=== PATIENT | female | born 1990 ===

== ENCOUNTER 2019-04-22 18:03 | Inpatient (IN) ==
[2019-04-22 18:47] LABS: Basophils % 0.5 % (0.0-0.8); Eosinophils # 0.1 10*3/uL (0.0-0.87); Eosinophils % 1.1 % (0.00-10.9); Hematocrit 37.4 VOL% (35.7-47.0); Hemoglobin 12.5 GM/DL (12.0-16.0); Immature Granulocytes % 0.5 %; Immature Granulocytes Absolute 0.04 #; Lymphocytes # 0.8 10*3/uL (1.4-4.0); Lymphocytes % 9.4 % (21.3-54.2); Mean Corpuscular HGB Conc 33.4 GM/DL (32-36); Mean Corpuscular Volume 93.5 FL (87-102); Mean Platelet Volume 9.9 FL (9.6-12.0); Monocytes % 7.1 % (1.7-12.7); Neutrophils % 81.4 % (38.7-73.9); Platelet Count 286 T/CUMM (130-400); White Blood Count 8.8 T/CUMM (4-12)
[2019-04-22 19:14] LABS: Albumin 2.7 G/DL (3.4-5.0); Bilirubin,Total 0.5 MG/DL (0.2-1.0); Calcium 8.3 MG/DL (8.5-10.1); Osmolality,Calculated 266.2 MOS/KG (273-304); Total Protein 7.2 G/DL (6.4-8.3)
[2019-04-22] MEDS ORDERED: ACETAMINOPHEN 325 MG TABLET PO PRN (20:53)
[2019-04-22] MEDS ORDERED: ONDANSETRON 4 MG/2 ML VIAL IV PRN (20:53)
[2019-04-22] MEDS: HYDROmorphone 2 MG/1 ML VIAL IV PRN (23:37)
[2019-04-23] MEDS: PIPERACILLIN/TAZOBACTAM 3,375 MG in SODIUM CHLORIDE 0.9% 100 ML IV SCH ×4 (00:48→20:30)
[2019-04-23] MEDS: SODIUM CHLORIDE 0.9% 1,000 ML IV SCH ×3 (00:50→14:24)
[2019-04-23] MEDS: HYDROmorphone 2 MG/1 ML VIAL IV PRN (06:20)
[2019-04-23 06:27] LABS: Basophils % 0.4 % (0.0-0.8); Eosinophils # 0.2 10*3/uL (0.0-0.87); Eosinophils % 2.2 % (0.00-10.9); Hematocrit 32.1 VOL% (35.7-47.0); Hemoglobin 10.5 GM/DL (12.0-16.0); Immature Granulocytes % 0.7 %; Immature Granulocytes Absolute 0.05 #; Lymphocytes # 0.9 10*3/uL (1.4-4.0); Lymphocytes % 12.7 % (21.3-54.2); Mean Corpuscular HGB Conc 32.7 GM/DL (32-36); Mean Corpuscular Volume 95.8 FL (87-102); Mean Platelet Volume 9.9 FL (9.6-12.0); Monocytes % 13.6 % (1.7-12.7); Neutrophils % 70.4 % (38.7-73.9); Platelet Count 244 T/CUMM (130-400); Red Blood Count 3.35 MC/CUMM (3.8-5.5); Red Cell Distribution Width 13.2 % (9.3-17.3); White Blood Count 6.8 T/CUMM (4-12)
[2019-04-23 06:42] LABS: Albumin 2.2 G/DL (3.4-5.0); Bilirubin,Total 0.4 MG/DL (0.2-1.0); Calcium 7.8 MG/DL (8.5-10.1)
[2019-04-23] MEDS ORDERED: LIDOCAINE 1%/EPI INJ 20 ML VIAL ONE (09:37)
[2019-04-23] MEDS ORDERED: BUPIVACAINE MPF 0.25% 30 ML VIAL ONE (09:37)
[2019-04-23] MEDS ORDERED: SEVOFLURANE 1 UNIT/15 MINUTE INH ONE (10:38)
[2019-04-23] MEDS ORDERED: MIDAZOLAM 2 MG/2 ML VIAL ONE (10:38)
[2019-04-23] MEDS ORDERED: propofoL 200 MG/20 ML VIAL IV ONE (10:38)
[2019-04-23] MEDS ORDERED: LIDOCAINE 2% 5 ML VIAL ONE (10:38)
[2019-04-23] MEDS ORDERED: ONDANSETRON 4 MG/2 ML VIAL ONE (10:39)
[2019-04-23] MEDS ORDERED: fentaNYL 100 MCG/2 ML VIAL ONE (10:39)
[2019-04-23] MEDS ORDERED: DEXAMETHASONE 4 MG/1 ML VIAL ONE (10:39)
[2019-04-23] MEDS: KETOROLAC 10 MG TABLET PO SCH ×3 (13:03→20:31)
[2019-04-23] MEDS: CYCLOBENZAPRINE 10 MG TABLET PO SCH ×3 (13:03→20:31)
[2019-04-23] MEDS: ENOXAPARIN 40 MG/0.4 ML SYRINGE SUBCUT SCH (16:09)
[2019-04-24] MEDS: SODIUM CHLORIDE 0.9% 1,000 ML IV SCH ×2 (03:41→17:21)
[2019-04-24] MEDS: PIPERACILLIN/TAZOBACTAM 3,375 MG in SODIUM CHLORIDE 0.9% 100 ML IV SCH ×3 (06:28→20:25)
[2019-04-24] MEDS: CYCLOBENZAPRINE 10 MG TABLET PO SCH ×3 (09:44→20:25)
[2019-04-24] MEDS: KETOROLAC 10 MG TABLET PO SCH ×3 (09:44→20:25)
[2019-04-24] MEDS: HYDROmorphone 2 MG/1 ML VIAL IV PRN ×2 (09:59→22:45)
[2019-04-24] MEDS: ENOXAPARIN 40 MG/0.4 ML SYRINGE SUBCUT SCH (14:00)
[2019-04-25] MEDS: PIPERACILLIN/TAZOBACTAM 3,375 MG in SODIUM CHLORIDE 0.9% 100 ML IV SCH ×3 (04:30→20:26)
[2019-04-25 06:06] LABS: Basophils % 0.6 % (0.0-0.8); Eosinophils # 0.2 10*3/uL (0.0-0.87); Hematocrit 31.1 VOL% (35.7-47.0); Hemoglobin 9.8 GM/DL (12.0-16.0); Immature Granulocytes Absolute 0.14 #; Lymphocytes # 2.5 10*3/uL (1.4-4.0); Lymphocytes % 35.2 % (21.3-54.2); Mean Corpuscular HGB Conc 31.5 GM/DL (32-36); Mean Corpuscular Volume 98.7 FL (87-102); Mean Platelet Volume 9.9 FL (9.6-12.0); Monocytes % 8.6 % (1.7-12.7); Neutrophils % 50.6 % (38.7-73.9); Platelet Count 250 T/CUMM (130-400); Red Blood Count 3.15 MC/CUMM (3.8-5.5); Red Cell Distribution Width 13.3 % (9.3-17.3); White Blood Count 7.1 T/CUMM (4-12)
[2019-04-25 06:38] LABS: Band Neutrophils 1 % (0-10); Lymphocytes 29 % (20-55); Segmented Neutrophils 61 % (50-85)
[2019-04-25 06:39] LABS: Platelet Estimate Normal; Total Cells Counted 100
[2019-04-25] MEDS: SODIUM CHLORIDE 0.9% 1,000 ML IV SCH ×2 (08:38→18:43)
[2019-04-25] MEDS: CYCLOBENZAPRINE 10 MG TABLET PO SCH ×3 (09:07→20:27)
[2019-04-25] MEDS: KETOROLAC 10 MG TABLET PO SCH ×3 (09:07→20:27)
[2019-04-25] MEDS: HYDROmorphone 2 MG/1 ML VIAL IV PRN ×2 (13:42→23:01)
[2019-04-25] MEDS: ENOXAPARIN 40 MG/0.4 ML SYRINGE SUBCUT SCH (16:14)
[2019-04-26] MEDS: PIPERACILLIN/TAZOBACTAM 3,375 MG in SODIUM CHLORIDE 0.9% 100 ML IV SCH ×3 (05:01→21:07)
[2019-04-26] MEDS: KETOROLAC 10 MG TABLET PO SCH ×4 (07:22→21:06)
[2019-04-26] MEDS: CYCLOBENZAPRINE 10 MG TABLET PO SCH ×4 (07:22→21:06)
[2019-04-26] MEDS: HYDROmorphone 2 MG/1 ML VIAL IV PRN ×2 (07:22→22:29)
[2019-04-26] MEDS: ENOXAPARIN 40 MG/0.4 ML SYRINGE SUBCUT SCH (14:45)
[2019-04-26] MEDS: SODIUM CHLORIDE 0.9% 1,000 ML IV SCH (21:18)
[2019-04-27] MEDS: PIPERACILLIN/TAZOBACTAM 3,375 MG in SODIUM CHLORIDE 0.9% 100 ML IV SCH ×2 (05:20→14:16)
[2019-04-27] MEDS: SODIUM CHLORIDE 0.9% 1,000 ML IV SCH ×3 (09:13→22:41)
[2019-04-27] MEDS: CYCLOBENZAPRINE 10 MG TABLET PO SCH ×3 (09:14→20:45)
[2019-04-27] MEDS: KETOROLAC 10 MG TABLET PO SCH ×3 (09:14→20:44)
[2019-04-27] MEDS: ENOXAPARIN 40 MG/0.4 ML SYRINGE SUBCUT SCH (14:16)
[2019-04-27] MEDS: CIPROFLOXACIN 500 MG TABLET PO SCH (20:45)
[2019-04-28] MEDS: HYDROmorphone 2 MG/1 ML VIAL IV PRN (07:21)
[2019-04-28] MEDS: CYCLOBENZAPRINE 10 MG TABLET PO SCH (09:40)
[2019-04-28] MEDS: CIPROFLOXACIN 500 MG TABLET PO SCH (09:40)
[2019-04-28] MEDS ORDERED: INFLUENZA VIRUS VACCINE 0.5 ML SYRINGE IM ONE (11:26)
[2019-04-28 12:05] VITALS: BP 136/79
[2019-04-28] MEDS: SODIUM CHLORIDE 0.9% 1,000 ML IV SCH (12:52)
== END 2019-04-28 13:25 | disposition home or self-care (01) | DRG 571 ==
LOC: N.ED 18:03 → N.EDINP 19:51 → N.3E 20:50
PROVIDERS: ADMIT Surgery; ATTEND Surgery